=== PATIENT | female | born 1975 | race African-American/Black ===

== ENCOUNTER 2018-02-05 20:55 | Emergency (ER) | payer BC ==
[2018-02-05 21:21] LABS: Pregnancy Test - Urine (BHCG) Negative (Negative); Pregu Control Background? CLEAR/WHITE (CLR/WHITE); Pregu Control Bar Appear? YES (CONTROL BAR); Specific Gravity 1.023 (1.002-1.036)
[2018-02-05 21:22] LABS: Bilirubin Negative (Negative); Blood, Urine Trace (Negative); Clarity Clear (Clear); Glucose, Urine (Dipstick) Negative (Negative); Leukocyte Negative (Negative); Nitrite Negative (Negative); Protein, Urine (Dipstick) Negative (Neg-Trace); Specific Gravity, Urine 1.025 (1.005-1.030)
[2018-02-05 21:32] LABS: Bacteria/HPF Rare-Few HPF (None Seen); Other Microscopic Description RARE CLUE CELL; RBC/HPF 0-3 HPF (0-3); Squamous Epithelial 0-3 HPF (0-3); WBC/HPF 0-3 HPF (0-3)
== END 2018-02-05 21:30 | disposition home or self-care (01) ==
LOC: BURERS 20:55
DX: J06.9 Acute upper respiratory infection, unspecified (principal); F32.9 Major depressive disorder, single episode, unspecified; I10 Essential (primary) hypertension; Z79.899 Other long term (current) drug therapy
CPT/HCPCS: 81003; 81015; 81025; 99283

== ENCOUNTER 2020-09-25 15:20 | Emergency (ER) | payer BC ==
[2020-09-25] MEDS ORDERED: Sulfameth/Trimethoprim DS 800-160mg TAB ONE (15:38)
[2020-09-25] MEDS ORDERED: Bacitracin 1 PK ONE (15:38)
== END 2020-09-25 15:55 | disposition home or self-care (01) ==
LOC: BURERS 15:20
DX: N61.0 Mastitis without abscess (principal); I10 Essential (primary) hypertension; Z79.899 Other long term (current) drug therapy
CPT/HCPCS: 99283

== ENCOUNTER 2020-09-27 22:02 | Emergency (ER) | payer BC ==
[2020-09-27] MEDS ORDERED: Clindamycin 150 MG CAP ONE (22:36)
== END 2020-09-27 22:40 | disposition home or self-care (01) ==
LOC: BURERS 22:02
DX: R22.0 Localized swelling, mass and lump, head (principal); N61.0 Mastitis without abscess; R00.0 Tachycardia, unspecified; I10 Essential (primary) hypertension; Z79.899 Other long term (current) drug therapy
CPT/HCPCS: 99283

== ENCOUNTER 2023-08-30 13:51 | Emergency (ER) | payer BC ==
[2023-08-30] MEDS ORDERED: Ondansetron ODT 4 MG TAB ONE (14:09)
== END 2023-08-30 14:33 | disposition home or self-care (01) ==
LOC: BURERS 13:51
DX: J11.1 Influenza due to unidentified influenza virus with other respiratory manifestations (principal); E11.9 Type 2 diabetes mellitus without complications; I10 Essential (primary) hypertension
CPT/HCPCS: 71045; Q0162